=== PATIENT | male | born 1950 | race Two or more races ===

== ENCOUNTER 2017-10-23 14:12 | Outpatient (CLI) | payer MEDICARE, OTHER | END 2017-10-23 23:59 | disposition home or self-care (01) | LOC: RAD 14:12 | PROVIDERS: ATTEND Legal Medicine | DX: M47.894 Other spondylosis, thoracic region (principal) | CPT/HCPCS: 71020-TC ==

== ENCOUNTER 2021-03-30 10:53 | Emergency (ER) | payer MEDICARE, OTHER ==
[~2021-03-30] VITALS: Ht 177.8 cm; Wt 86.2 kg
[2021-03-30 11:01] VITALS: BP 157/67
== END 2021-03-30 11:31 | disposition home or self-care (01) ==
LOC: ER 10:56
DX: Z20.822 Contact with and (suspected) exposure to COVID-19 (principal); I10 Essential (primary) hypertension
CPT/HCPCS: C9803; U0003